=== PATIENT | male | born 1995 | race Hispanic/Latino ===

== ENCOUNTER 2019-10-11 14:02 | Inpatient (IN) | payer SELFPAY ==
[2019-10-11 14:26] LABS: Basophils % (Auto) 0.4 % (0.0-1.8); Eosinophils # (Auto) 0.1 K/mm3 (0.0-0.4); Eosinophils % (Auto) 0.5 % (0.0-4.3); Hematocrit 52.4 % (35.5-45.6); Hemoglobin 18.2 gm/dl (11.8-15.2); Lymphocytes % (Auto) 16.6 % (13.4-35.0); Mean Corpuscular HGB Conc 35 % (32-34); Mean Corpuscular Volume 93 fl (84-94); Monocytes # (Auto) 1.4 K/mm3 (0.0-0.8); Monocytes % (Auto) 11.5 % (0.0-7.3); Platelet Count 304 K/mm3 (140-440); Red Blood Count 5.67 M/mm3 (3.65-5.03); Red Cell Distribution Width 13.5 % (13.2-15.2)
[2019-10-11 14:45] LABS: Alanine Aminotransferase 26 units/L (7-56); Albumin 4.3 g/dL (3.9-5); BUN/Creatinine Ratio 14; Blood Urea Nitrogen 14 mg/dL (9-20); Calcium 9.2 mg/dL (8.4-10.2); Hemolysis Index 20
[2019-10-11] MEDS ORDERED: SODIUM CHLORIDE 0.9% 1000 ML 1,000 ML IV ONE ×2 (14:55→16:50)
[2019-10-11] MEDS ORDERED: MORPHINE 4 MG/1 ML INJ IV ONE (14:55)
[2019-10-11] MEDS ORDERED: ONDANSETRON 4 MG/2 ML INJ IV ONE (14:55)
--- NOTE | 2019-10-11 15:00 | Emergency Department Report ---
ED Abdominal Pain HPI - General Chief Complaint: Abdominal Pain Stated Complaint: CONSTIPATION/ABD PAIN Time Seen by Provider: 10/11/19 14:48 Source: patient Mode of arrival: Ambulatory Limitations: No Limitations - History of Present Illness Initial Comments: Patient is a 24-year-old male presents emergency room with complaints of constipation that began 3 days ago. He states that he is also having lower abdominal pain. He states that he has been having nausea and vomiting. He states he has had approximately 20 episodes of vomiting over the last 3 days. He states that he has not been able to pass gas. He states that he attempted to use Ex-Lax, enema, magnesium citrate. He states that the only thing he is able to keep down his water. He denies any recent travel or sick contacts. His only abdominal surgery history is a surgery for undescended testicle and hernia repair approximately 15 years ago. He denies any other past medical history or allergies to medications. - Related Data Home Medications Medication Instructions Recorded Confirmed Last Taken No Known Home Medications [No 10/11/19 10/11/19 Unknown Reported Home Medications] Allergies Allergy/AdvReac Type Severity Reaction Status Date / Time No Known Allergies Allergy Unverified 10/11/19 14:07 ED Review of Systems ROS: Stated complaint: CONSTIPATION/ABD PAIN Other details as noted in HPI Comment: All other systems reviewed and negative ED Past Medical Hx - Past Medical History Previous Medical History?: No - Surgical History Past Surgical History?: No - Social History Smoking Status: Current Every Day Smoker Substance Use Type: Alcohol, Marijuana - Medications Home Medications: Home Medications Medication Instructions Recorded Confirmed Last Taken Type No Known Home Medications [No 10/11/19 10/11/19 Unknown History Reported Home Medications] ED Physical Exam - General Limitations: No Limitations General appearance: alert, in no apparent distress - Head Head exam: Present: atraumatic, normocephalic - Eye Eye exam: Present: normal appearance - ENT ENT exam: Present: mucous membranes moist - Respiratory Respiratory exam: Present: normal lung sounds bilaterally. Absent: respiratory distress, wheezes, rales, rhonchi, stridor, chest wall tenderness, accessory muscle use, decreased breath sounds, prolonged expiratory - Cardiovascular Cardiovascular Exam: Present: regular rate, normal rhythm, normal heart sounds. Absent: systolic murmur, diastolic murmur, rubs, gallop - GI/Abdominal GI/Abdominal exam: Present: soft, tenderness (generalized lower), hypoactive bowel sounds. Absent: distended, guarding, rebound, rigid - Neurological Exam Neurological exam: Present: alert, oriented X3 - Psychiatric Psychiatric exam: Present: normal affect, normal mood - Skin Skin exam: Present: warm, dry, intact ED Course Vital Signs 10/11/19 10/11/19 10/11/19 14:06 16:01 16:31 Temperature 98.2 F Pulse Rate 104 H Respiratory 16 18 18 Rate Blood Pressure 131/79 Blood Pressure [Right] O2 Sat by Pulse 95 Oximetry 10/11/19 10/11/19 10/11/19 18:52 19:31 20:01 Temperature 97.8 F Pulse Rate 89 Respiratory 18 18 18 Rate Blood Pressure Blood Pressure 130/68 [Right] O2 Sat by Pulse 93 Oximetry 10/11/19 20:47 Temperature 97.9 F Pulse Rate 77 Respiratory 17 Rate Blood Pressure 123/56 Blood Pressure [Right] O2 Sat by Pulse 97 Oximetry - Consultations Consultation #1: 10/11/19 16:[address] Momin, general surgeon who pulled up the CT images and most likely thinks that this is a large ball of stool and less likely a mass causing a large bowel obstruction, he recommended to give the patient a soapsuds enema and milk of magnesia, he states to admit to hospitalist service and he will consult on patient, advised to place patient on clear liquid diet and placed on Dulcolax 10/11/19 17:[address] Good hospitalist for admission he states he will call back 10/11/19 18:[address] Good hospitalist he will accept and resume care of patient, will admit to hospital service ED Medical Decision Making - Lab Data Result diagrams: 10/11/19 14:11 10/11/19 14:11 Lab Results 10/11/19 10/11/19 10/11/19 Range/Units 14:11 14:11 14:19 WBC 11.9 H (4.5-11.0) K/mm3 RBC 5.67 H (3.65-5.03) M/mm3 Hgb 18.2 H (11.8-15.2) gm/dl Hct 52.4 H (35.5-45.6) % MCV 93 (84-94) fl MCH 32 (28-32) pg MCHC 35 H (32-34) % RDW 13.5 (13.2-15.2) % Plt Count 304 (140-440) K/mm3 Lymph % (Auto) 16.6 (13.4-35.0) % [place] % (Auto) 11.5 H (0.0-7.3) % Eos % (Auto) 0.5 (0.0-4.3) % Baso % (Auto) 0.4 (0.0-1.8) % Lymph # 2.0 (1.2-5.4) K/mm3 [place] # 1.4 H (0.0-0.8) K/mm3 Eos # 0.1 (0.0-0.4) K/mm3 Baso # 0.0 (0.0-0.1) K/mm3 Seg Neutrophils % 71.0 H (40.0-70.0) % Seg Neutrophils # 8.5 H (1.8-7.7) K/mm3 Sodium 134 L (137-145) mmol/L Potassium 4.3 (3.6-5.0) mmol/L Chloride 98.5 (98-107) mmol/L Carbon Dioxide 24 (22-30) mmol/L Anion Gap 16 mmol/L BUN 14 (9-20) mg/dL Creatinine 1.0 (0.8-1.5) mg/dL Estimated GFR > 60 ml/min BUN/Creatinine Ratio 14 % Glucose 107 H (75-100) mg/dL Calcium 9.2 (8.4-10.2) mg/dL Total Bilirubin 1.60 H (0.1-1.2) mg/dL AST 31 (5-40) units/L ALT 26 (7-56) units/L Alkaline Phosphatase 61 (35-129) units/L Total Protein 6.7 (6.3-8.2) g/dL Albumin 4.3 (3.9-5) g/dL Albumin/Globulin Ratio 1.8 % Lipase 8 L (13-60) units/L Urine Color Karolyn (Yellow) Urine Turbidity Clear (Clear) Urine pH 5.0 (5.0-7.0) Ur Specific [place] 1.041 H (1.003-1.030) Urine Protein <15 mg/dl (Negative) mg/dL Urine Glucose (UA) Neg (Negative) mg/dL Urine Ketones Neg (Negative) mg/dL Urine Blood Neg (Negative) Urine Nitrite Neg (Negative) Urine Bilirubin Neg (Negative) Urine Urobilinogen 4.0 (<2.0) mg/dL Ur Leukocyte Esterase Neg (Negative) Urine WBC (Auto) 1.0 (0.0-6.0) /HPF Urine RBC (Auto) 1.0 (0.0-6.0) /HPF Urine Bacteria (Auto) 1+ (Negative) /HPF Urine Mucus Few /HPF - Radiology Data Radiology results: report reviewed CT abdomen pelvis w con INDICATION / CLINICAL INFORMATION: MAIN: lower abd pain, constipation x3 days [id number] 100ml. TECHNIQUE: All CT scans at this location are performed using CT dose reduction for ALARA by means of automated exposure control. COMPARISON: None available. FINDINGS: No free fluid is seen in the abdomen. The liver, spleen, kidneys, pancreas, adrenal glands and great vessels are normal. No enlarged mesenteric or retroperitoneal lymph nodes are seen. In the pelvis, no free fluid is seen. There is thickening of the wall of the descending colon and proximal two thirds of the sigmoid colon with fecal material present. The distal third of the si gmoid colon is collapsed. No enlarged lymph nodes are identified. The bladder and the appendix are normal. No significant skeletal abnormality is seen. IMPRESSION: Mild thickening of the wall of the descending and proximal two thirds of the sigmoid colon with a moderate amount of fecal material present. The distal third of the sigmoid colon is collapsed and this is worrisome for a partially obstructing lesion Signer Name: Douglas Henry MD FACR Signed: 10/11/2019 4:23 PM Workstation Name: [id number] Transcribed By: MS Dictated By: Douglas Henry MD Electronically Authenticated By: Douglas Henry MD Signed Date/Time: 10/11/19 1623 DD/ 1619 TD/TT: - Medical Decision Making Patient is a 24-year-old male presents emergency room with complaints of constipation that began 3 days ago. He states that he is also having lower abdo glenn pain. He states that he has been having nausea and vomiting. He states he has had approximately 20 episodes of vomiting over the last 3 days. He states that he has not been able to pass gas. He states that he attempted to use Ex-Lax, enema, magnesium citrate. He states that the only thing he is able to keep down his water. He denies any recent travel or sick contacts. His only abdominal surgery history is a surgery for undescended testicle and hernia repair approximately 15 years ago. He denies any other past medical history or allergies to medications. Initial vitals with mild tachycardia which improved upon repeat. On exam patient has lower abdominal tenderness to palpation and hypoactive bowel sounds, no guarding, no rebound, no rigidity, no peritoneal signs. Labs show signs of mild dehydration and mildly elevated white blood cell count. UA without evidence of UTI. Patient given 1 L normal saline, Zofran, morphine and symptoms slightly improved. CT abd pelvis: Mild thickening of the wall of the descending and proximal two thirds of the sigmoid colon with a moderate amount of fecal material present. The distal third of the sigmoid colon is collapsed and this is worrisome for a partially obstructing lesion. Discussed case with Dr. Momin, general surgeon who pulled up the CT images and most likely thinks that this is a large ball of stool and less likely a mass causing a large bowel obstruction, he recommended to give the patient a soapsuds enema and milk of magnesia, he states to admit to hospitalist service and he will consult on patient, advised to place patient on clear liquid diet and placed on Dulcolax. Spoke to Dr. Good, hospitalist he will accept and resume care of patient, will admit to hospital service - Differential Diagnosis SBO, LBO, mass, colitis, diverticulitis, constipation, impaction Critical care attestation.: If time is entered above; I have spent that time in minutes in the direct care of this critically ill patient, excluding procedure time. ED Disposition Clinical Impression: Large bowel obstruction, Bowel wall thickening Abdominal pain Qualifiers: Abdominal location: lower abdomen, unspecified Qualified Code(s): R10.30 - Lower abdominal pain, unspecified Nausea & vomiting Qualifiers: Vomiting type: unspecified Vomiting Intractability: non-intractable Qualified Code(s): R11.2 - Nausea with vomiting, unspecified Disposition: - TO HOME OR SELFCARE Is pt being admited?: Yes Does the pt Need Aspirin: No Condition: Fair Time of Disposition: 17:00
[2019-10-11 15:33] LABS: Bacteria,Urine 1+ /HPF (Negative); Bilirubin,Urine NEG (Negative); Blood,Urine NEG (Negative); Color,Urine Amber (Yellow); Mucus,Urine FEW /HPF; Protein,Urine <15 mg/dL mg/dL (Negative)
--- NOTE | 2019-10-11 16:27 | Cat Scan Report ---
CT abdomen pelvis w con INDICATION / CLINICAL INFORMATION: MAIN: lower abd pain, constipation x3 days [id number] 100ml. TECHNIQUE: All CT scans at this location are performed using CT dose reduction for ALARA by means of automated e xposure control. COMPARISON: None available. FINDINGS: No free fluid is seen in the abdomen. The liver, spleen, kidneys, pancreas, adrenal glands and great vessels are normal. No enlarged mesenteric or retroperitoneal lymph nodes are seen. In the pelvis, no free fluid is seen. There is thickening of the wall of the descending colon and pro ximal two thirds of the sigmoid colon with fecal material present. The distal third of the sigmoid [place] is collapsed. No enlarged lymph nodes are identified. The bladder and the appendix are normal. No significant skeletal abnormality is seen. IMPRESSION: Mild thickening of the wall of the descending and proximal two thirds of the sigmoid colon with a mod erate amount of fecal material present. The distal third of the sigmoid colon is collapsed and this i s worrisome for a partially obstructing lesion Signer Name: Douglas Henry MD FACR Signed: 10/11/2019 4:23 PM Workstation Name: [id number]
[2019-10-11] MEDS ORDERED: MAGNESIUM HYDROXIDE (MOM) ORAL LIQD UDC PO ONE (16:53)
--- NOTE | 2019-10-11 16:59 | Event Note ---
Date: 10/11/19 Discussed case with TERRIE Vanegas. CT reviewed. This is mostly likely severe constipation. Would try soap suds enemas along with daily laxative. Will need to be hydrated. Eventually, will need to be on good bowel regimen at home.
[2019-10-11] MEDS ORDERED: HYDROmorphone 1 MG/1 ML INJ IV ONE (18:33)
--- NOTE | 2019-10-11 21:00 | History and Physical Report ---
History of Present Illness Date of examination: 10/11/19 Date of admission: 10/11/19 18:35 Chief complaint: Complains of abdominal pain and constipation for 5 days History of present illness: 24-year-old male with no significant past medical history comes in for constipation of 5 days duration. As per the ER physician business development assistant it was mentioned last 3 days. Patient is also having left upper quadrant and left lower quadrant pain which is about 7-10 on a scale of 1-10. Colicky. Patient also says that he had 20 episodes of vomiting over the last 3 days. Patient states that he is not able to pass gas. Patient attempted and Félix accepted but with no relief. No recent travel no fever. Had abdominal surgery for undescended testicles and hernia repair approximately 15 years ago. Denies any other past medical history. No exposure to coronavirus. No recent travel. Past Medical History Previous Medical History?: No Surgical History Past Surgical History?: No Social History Smoking Status: Current Every Day Smoker Substance Use Type: Alcohol, Marijuana Family history Medications Home Medications: Home Medications Medication Instructions Recorded Confirmed Last Taken Type No Known Home Medications [No 10/11/19 10/11/19 Unknown History Reported Home Medications] Review of Systems ROS: Stated complaint: CONSTIPATION/ABD PAIN Vomiting persistently. Comment: All other systems reviewed and negative Medications and Allergies Allergies Allergy/AdvReac Type Severity Reaction Status Date / Time No Known Allergies Allergy Unverified 10/11/19 14:07 Home Medications Medication Instructions Recorded Confirmed Last Taken Type No Known Home Medications [No 10/11/19 10/11/19 Unknown History Reported Home Medications] Active Meds: Active Medications Bisacodyl (Dulcolax) 10 mg PO QDAY PRN PRN Reason: Constipation Exam - Constitutional Vitals: Temp Pulse Resp BP Pulse Ox 97.9 F 77 17 123/56 97 10/11/19 20:47 10/11/19 20:47 10/11/19 20:47 10/11/19 20:47 10/11/19 20:47 General appearance: Present: no acute distress, well-nourished - EENT Eyes: Present: PERRL ENT: hearing intact, clear oral mucosa - Neck Neck: Present: supple, normal ROM - Respiratory Respiratory effort: normal Respiratory: bilateral: CTA - Cardiovascular Heart rate: 70 Rhythm: regular Heart Sounds: Present: S1 & S2. Absent: rub, click - Extremities Extremities: no ischemia, pulses intact, pulses symmetrical, No edema Peripheral Pulses: within normal limits - Abdominal General gastrointestinal: Present: soft, tender (Left lower quadrant), non-distended, normal bowel sounds Male genitourinary: Present: normal - Rectal Rectal Exam: tenderness - Integumentary Integumentary: Present: clear, warm, dry - Musculoskeletal Musculoskeletal: gait normal, strength equal bilaterally - Psychiatric Psychiatric: appropriate mood/affect, intact judgment & insight - Neurologic Neurologic: CNII-XII intact, moves all extremities - Allied Health Allied health notes reviewed: nursing, case management Results - Labs CBC & Chem 7: 10/11/19 14:11 10/11/19 14:11 Labs: Laboratory Last Values WBC 11.9 K/mm3 (4.5-11.0) H 10/11/19 14:11 RBC 5.67 M/mm3 (3.65-5.03) H 10/11/19 14:11 Hgb 18.2 gm/dl (11.8-15.2) H 10/11/19 14:11 Hct 52.4 % (35.5-45.6) H 10/11/19 14:11 MCV 93 fl (84-94) 10/11/19 14:11 MCH 32 pg (28-32) 10/11/19 14:11 MCHC 35 % (32-34) H 10/11/19 14:11 RDW 13.5 % (13.2-15.2) 10/11/19 14:11 Plt Count 304 K/mm3 (140-440) 10/11/19 14:11 Lymph % (Auto) 16.6 % (13.4-35.0) 10/11/19 14:11 [place] % (Auto) 11.5 % (0.0-7.3) H 10/11/19 14:11 Eos % (Auto) 0.5 % (0.0-4.3) 10/11/19 14:11 Baso % (Auto) 0.4 % (0.0-1.8) 10/11/19 14:11 Lymph # 2.0 K/mm3 (1.2-5.4) 10/11/19 14:11 [place] # 1.4 K/mm3 (0.0-0.8) H 10/11/19 14:11 Eos # 0.1 K/mm3 (0.0-0.4) 10/11/19 14:11 Baso # 0.0 K/mm3 (0.0-0.1) 10/11/19 14:11 Seg Neutrophils % 71.0 % (40.0-70.0) H 10/11/19 14:11 Seg Neutrophils # 8.5 K/mm3 (1.8-7.7) H 10/11/19 14:11 Sodium 134 mmol/L (137-145) L 10/11/19 14:11 Potassium 4.3 mmol/L (3.6-5.0) 10/11/19 14:11 Chloride 98.5 mmol/L (98-107) 10/11/19 14:11 Carbon Dioxide 24 mmol/L (22-30) 10/11/19 14:11 Anion Gap 16 mmol/L 10/11/19 14:11 BUN 14 mg/dL (9-20) 10/11/19 14:11 Creatinine 1.0 mg/dL (0.8-1.5) 10/11/19 14:11 Estimated GFR > 60 ml/min 10/11/19 14:11 BUN/Creatinine Ratio 14 % 10/11/19 14:11 Glucose 107 mg/dL (75-100) H 10/11/19 14:11 Calcium 9.2 mg/dL (8.4-10.2) 10/11/19 14:11 Total Bilirubin 1.60 mg/dL (0.1-1.2) H 10/11/19 14:11 AST 31 units/L (5-40) 10/11/19 14:11 ALT 26 units/L (7-56) 10/11/19 14:11 Alkaline Phosphatase 61 units/L (35-129) 10/11/19 14:11 Total Protein 6.7 g/dL (6.3-8.2) 10/11/19 14:11 Albumin 4.3 g/dL (3.9-5) 10/11/19 14:11 Albumin/Globulin Ratio 1.8 % 10/11/19 14:11 Lipase 8 units/L (13-60) L 10/11/19 14:11 Urine Color Karolyn (Yellow) 10/11/19 14:19 Urine Turbidity Clear (Clear) 10/11/19 14:19 Urine pH 5.0 (5.0-7.0) 10/11/19 14:19 Ur Specific [place] 1.041 (1.003-1.030) H 10/11/19 14:19 Urine Protein <15 mg/dl mg/dL (Negative) 10/11/19 14:19 Urine Glucose (UA) Neg mg/dL (Negative) 10/11/19 14:19 Urine Ketones Neg mg/dL (Negative) 10/11/19 14:19 Urine Blood Neg (Negative) 10/11/19 14:19 Urine Nitrite Neg (Negative) 10/11/19 14:19 Urine Bilirubin Neg (Negative) 10/11/19 14:19 Urine Urobilinogen 4.0 mg/dL (<2.0) 10/11/19 14:19 Ur Leukocyte Esterase Neg (Negative) 10/11/19 14:19 Urine WBC (Auto) 1.0 /HPF (0.0-6.0) 10/11/19 14:19 Urine RBC (Auto) 1.0 /HPF (0.0-6.0) 10/11/19 14:19 Urine Bacteria (Auto) 1+ /HPF (Negative) 10/11/19 14:19 Urine Mucus Few /HPF 10/11/19 14:19 Short CBC 10/11/19 Range/Units 14:11 WBC 11.9 H (4.5-11.0) K/mm3 Hgb 18.2 H (11.8-15.2) gm/dl Hct 52.4 H (35.5-45.6) % Plt Count 304 (140-440) K/mm3 BMP 10/11/19 14:11 Sodium 134 L Potassium 4.3 Chloride 98.5 Carbon Dioxide 24 BUN 14 Creatinine 1.0 Glucose 107 H Calcium 9.2 Liver Function 10/11/19 Range/Units 14:11 Total Bilirubin 1.60 H (0.1-1.2) mg/dL AST 31 (5-40) units/L ALT 26 (7-56) units/L Alkaline Phosphatase 61 (35-129) units/L Albumin 4.3 (3.9-5) g/dL Urine 10/11/19 Range/Units 14:19 Urine Color [place]yn (Yellow) Urine pH 5.0 (5.0-7.0) Ur Specific [place] 1.041 H (1.003-1.030) Urine Protein <15 mg/dl (Negative) mg/dL Urine Glucose (UA) Neg (Negative) mg/dL - Imaging and Cardiology Imaging and Cardiology: CT abdomen IMPRESSION: Mild thickening of the wall of the descending and proximal two thirds of the sigmoid colon with a moderate amount of fecal material present. The distal third of the sigmoid colon is collapsed and this is worrisome for a partially obstructing lesion [place]/IV: IV Catheter Type [Right INT / Saline Lock Antecubital] Assessment and Plan Advance Directives: Yes (Full code) VTE prophylaxis?: Chemical Plan of care discussed with patient/family: Yes - Patient Problems (1) Large bowel obstruction Current Visit: Yes Status: Acute Plan to address problem: Probably secondary to fecal impaction Large intestine mass unlikely at this age Surgical consult and GI consult requested We will start the patient on lactulose (2) Acute dehydration Current Visit: Yes Status: Acute Plan to address problem: IV fluids for now Hemoconcentration High hematocrit secondary to dehydration--no polycythemia Urine specific gravity is 1.041 which is very high (3) Polycythemia due to fall in plasma volume Current Visit: Yes Status: Acute Plan to address problem: Secondary to fall in plasma volume Patient has high specific gravity of the urine-1.041 IV fluids for now (4) Hyponatremia Current Visit: Yes Status: Acute Plan to address problem: Mild IV fluids for now (5) DVT prophylaxis Current Visit: Yes Status: Acute Plan to address problem: Heparin 5000 every 12
[2019-10-11] MEDS ORDERED: METOCLOPRAMIDE 10 MG/2 ML INJ IV PRN (21:37)
[2019-10-11] MEDS ORDERED: ACETAMINOPHEN 325 MG TAB PO PRN ×2 (21:37)
[2019-10-11] MEDS ORDERED: ONDANSETRON 4 MG/2 ML INJ IV PRN (21:37)
[2019-10-11] MEDS: D5W/0.9% NACL 1,000 ML IV SCH (22:12)
[2019-10-11] MEDS: FAMOTIDINE 20 MG/2 ML INJ IV SCH (22:13)
[2019-10-11] MEDS: KETOROLAC 30 MG/1 ML INJ IV PRN (22:14)
[2019-10-12] MEDS: D5W/0.9% NACL 1,000 ML IV SCH ×2 (05:04→13:10)
[2019-10-12] MEDS: KETOROLAC 30 MG/1 ML INJ IV PRN ×3 (05:06→19:31)
[2019-10-12] MEDS: FAMOTIDINE 20 MG/2 ML INJ IV SCH (09:43)
--- NOTE | 2019-10-12 12:11 | Consultation ---
History of Present Illness Consult date: 10/12/19 Reason for consult: abdominal pain Requesting physician: SEN UNDERWOOD Chief complaint: lower abdominal pain - History of present illness History of present illness: 24yo M, otherwise healthy, presents for evaluation of lower abdominal pain and N/V. Pt reports that two days ago, he began to have lower abdominal pain. He had not had a BM, so he decided to try an enema, mag Citrate, etc., which led to N/V. Pt presented to ED for evaluation. CT showed a large amount of stool in the distal colon. Pt reports that he usually has 1-2 BMs per day. He usually does not have problem s with constipation. No family history of intestinal problems or cancer. Past History Past Medical History: No medical history Past Surgical History: Other (right hernia and retracted testicle - surgery at 9yo) Social history: smoking (occasional), alcohol abuse (occasional). denies: prescription drug abuse, IV drug use Family history: no significant family history Medications and Allergies Allergies Allergy/AdvReac Type Severity Reaction Status Date / Time No Known Allergies Allergy Verified 10/11/19 21:51 Home Medications Medication Instructions Recorded Confirmed Last Taken Type No Known Home Medications [No 10/11/19 10/11/19 Unknown History Reported Home Medications] Active Meds: Active Medications Acetaminophen (Tylenol) 650 mg PO Q4H PRN PRN Reason: Pain MILD(1-3)/Fever >100.5/ARMENDARIZ Bisacodyl (Dulcolax) 10 mg PO QDAY PRN PRN Reason: Constipation Famotidine (Pepcid) 20 mg IV BID [facility] Last Admin: 10/12/19 09:43 Dose: 20 mg Documented by: Dextrose/Sodium Chloride (D5ns) 1,000 mls @ 125 mls/hr IV DIRECT DICK Last Admin: 10/12/19 05:04 Dose: 125 mls/hr Documented by: Ketorolac Tromethamine (Toradol) 15 mg IV Q6H PRN PRN Reason: Pain, Mild (1-3) Stop: 10/16/19 21:40 Last Admin: 10/12/19 11:35 Dose: 15 mg Documented by: Metoclopramide HCl (Reglan) 10 mg IV Q6H PRN PRN Reason: Nausea And Vomiting Ondansetron HCl (Zofran) 4 mg IV Q3H PRN PRN Reason: Nausea And Vomiting Polyethylene Glycol (Miralax 3350) 17 gm PO QDAY [facility] Sodium Chloride (Sodium Chloride Flush Syringe 10 Ml) 10 ml IV BID [facility] Last Admin: 10/12/19 09:46 Dose: 10 ml Documented by: Sodium Chloride (Sodium Chloride Flush Syringe 10 Ml) 10 ml IV PRN PRN PRN Reason: LINE FLUSH Review of Systems - Constitutional no fever, no chills, no chronic pain - Cardiovascular no chest pain, no shortness of breath - Respiratory no cough - Gastrointestinal abdominal pain, nausea, vomiting, constipation, change in bowel habits, dyspepsia/bloating - Genitourinary no dysuria, no flank pain - Muskuloskeletal no low back pain - Integumentary no rash Exam Vital Signs Temp Pulse Resp BP Pulse Ox 98.2 F 104 H 16 131/79 95 10/11/19 14:06 10/11/19 14:06 10/11/19 14:06 10/11/19 14:06 10/11/19 14:06 - General physical appearance Positive: well developed, well nourished, no distress, no pain, other - Eyes Positive: normal occular movement. Negative: icteric - Respiratory Positive: normal expansion, normal respiratory effort, clear to auscultation - Cardiovascular Rhythm: regular - Abdomen Abdomen: Present: soft, tender (very minimal in LLQ). Absent: distended, guarding, rigid, surgical scars - Integumentary no rash, no growths, no abnormal pigmentation - Neurologic Neurologic: alert and oriented to time, place and person, motor strength and sensation are grossly intact - Psychiatric Psychiatric: appropriate mood/affect, intact judgment & insight, cooperative Results - Labs 10/11/19 14:11 10/11/19 14:11 Abnormal lab results 10/11/19 10/11/19 10/11/19 Range/Units 14:11 14:11 14:19 WBC 11.9 H (4.5-11.0) K/mm3 RBC 5.67 H (3.65-5.03) M/mm3 Hgb 18.2 H (11.8-15.2) gm/dl Hct 52.4 H (35.5-45.6) % MCHC 35 H (32-34) % [place] % (Auto) 11.5 H (0.0-7.3) % [place] # 1.4 H (0.0-0.8) K/mm3 Seg Neutrophils % 71.0 H (40.0-70.0) % Seg Neutrophils # 8.5 H (1.8-7.7) K/mm3 Sodium 134 L (137-145) mmol/L Glucose 107 H (75-100) mg/dL Total Bilirubin 1.60 H (0.1-1.2) mg/dL Lipase 8 L (13-60) units/L Ur Specific [place] 1.041 H (1.003-1.030) Diabetes panel 10/11/19 Range/Units 14:11 Sodium 134 L (137-145) mmol/L Potassium 4.3 (3.6-5.0) mmol/L Chloride 98.5 (98-107) mmol/L Carbon Dioxide 24 (22-30) mmol/L BUN 14 (9-20) mg/dL Creatinine 1.0 (0.8-1.5) mg/dL Glucose 107 H (75-100) mg/dL Calcium 9.2 (8.4-10.2) mg/dL AST 31 (5-40) units/L ALT 26 (7-56) units/L Alkaline Phosphatase 61 (35-129) units/L Total Protein 6.7 (6.3-8.2) g/dL Albumin 4.3 (3.9-5) g/dL Calcium panel 10/11/19 Range/Units 14:11 Calcium 9.2 (8.4-10.2) mg/dL Albumin 4.3 (3.9-5) g/dL Pituitary panel 10/11/19 Range/Units 14:11 Sodium 134 L (137-145) mmol/L Potassium 4.3 (3.6-5.0) mmol/L Chloride 98.5 (98-107) mmol/L Carbon Dioxide 24 (22-30) mmol/L BUN 14 (9-20) mg/dL Creatinine 1.0 (0.8-1.5) mg/dL Glucose 107 H (75-100) mg/dL Calcium 9.2 (8.4-10.2) mg/dL Adrenal panel 10/11/19 Range/Units 14:11 Sodium 134 L (137-145) mmol/L Potassium 4.3 (3.6-5.0) mmol/L Chloride 98.5 (98-107) mmol/L Carbon Dioxide 24 (22-30) mmol/L BUN 14 (9-20) mg/dL Creatinine 1.0 (0.8-1.5) mg/dL Glucose 107 H (75-100) mg/dL Calcium 9.2 (8.4-10.2) mg/dL Total Bilirubin 1.60 H (0.1-1.2) mg/dL AST 31 (5-40) units/L ALT 26 (7-56) units/L Alkaline Phosphatase 61 (35-129) units/L Total Protein 6.7 (6.3-8.2) g/dL Albumin 4.3 (3.9-5) g/dL - Imaging CT scan - abdomen: report reviewed, image reviewed CT scan - pelvis: report reviewed, image reviewed Assessment and Plan - Patient Problems (1) Abnormal CT scan, colon Current Visit: Yes Status: Acute Plan to address problem: Pt stable. I think this is more a case of severe constipation as opposed to an obstruction. Would treat with conservative measures. No urgent need for surgery. Recommendation: 1) Soap suds enema again 2) miralax 3) X-ray in AM. 4) Anticipate d/c home tomorrow if he has a good bowel movement today and X-ray looks better. Please call with questions. Time=30min
--- NOTE | 2019-10-12 12:33 | Gastroenterology Consultation ---
History of Present Illness - Reason for Consult Consult date: 10/12/[address] Colon Requesting physician: EVONNE WYMAN - History of Present Illness The patient is a 24 yo male with no past GI history/complaints. He was admitted with a 3-4 day hx of acute constipation. This was resistant to PO Mg citrate, but he had some BM with enemas. He had associated LLQ pain and bloating, and emesis at home (not here). There was no blood in the stool. He has had no prior colonoscopy nor bowel surgery. He has no family hx of IBD or colon cancer. The colon on the CT showed mild wall thickening but no free air, and no small bowel dilation. After enemas and PO MOM here, he has had 3 large BMs, and feels much better. He denies new medications or narcotics at home. Past History Past Medical History: No medical history Past Surgical History: No surgical history Social history: no significant social history. denies: smoking, alcohol abuse Family history: no significant family history Medications and Allergies Allergies Allergy/AdvReac Type Severity Reaction Status Date / Time No Known Allergies Allergy Verified 10/11/19 21:51 Home Medications Medication Instructions Recorded Confirmed Last Taken Type No Known Home Medications [No 10/11/19 10/11/19 Unknown History Reported Home Medications] Active Meds: Active Medications Acetaminophen (Tylenol) 650 mg PO Q4H PRN PRN Reason: Pain MILD(1-3)/Fever >100.5/ARMENDARIZ Dextrose/Sodium Chloride (D5ns) 1,000 mls @ 125 mls/hr IV DIRECT DICK Last Admin: 10/12/19 05:04 Dose: 125 mls/hr Documented by: Ketorolac Tromethamine (Toradol) 15 mg IV Q6H PRN PRN Reason: Pain, Mild (1-3) Stop: 10/16/19 21:40 Last Admin: 10/12/19 11:35 Dose: 15 mg Documented by: Magnesium Hydroxide (Milk Of Magnesia) 30 ml PO BID [facility] Stop: 10/15/19 10:01 Metoclopramide HCl (Reglan) 10 mg IV Q6H PRN PRN Reason: Nausea And Vomiting Ondansetron HCl (Zofran) 4 mg IV Q3H PRN PRN Reason: Nausea And Vomiting Polyethylene Glycol (Miralax 3350) 17 gm PO QDAY [facility] Sodium Chloride (Sodium Chloride Flush Syringe 10 Ml) 10 ml IV BID [facility] Last Admin: 10/12/19 09:46 Dose: 10 ml Documented by: Sodium Chloride (Sodium Chloride Flush Syringe 10 Ml) 10 ml IV PRN PRN PRN Reason: LINE FLUSH I HAVE REVIEWED/RECONCILED MEDICATIONS Review of Systems - Review of Systems All systems: negative (as noted in the HPI.) Exam - Constitutional Vital Signs: Temp Pulse Resp BP Pulse Ox 98.3 F 58 L 18 101/48 96 10/12/19 11:51 10/12/19 11:51 10/12/19 11:51 10/12/19 11:51 10/12/19 11:51 General appearance: no acute distress - EENT Eyes: PERRL, EOM intact ENT: hearing intact, clear oral mucosa - Neck Neck: supple, normal ROM - Respiratory Respiratory effort: normal Respiratory: bilateral: CTA - Cardiovascular Rhythm: regular Heart Sounds: Present: S1 & S2 Extremities: no ischemia, No edema - Gastrointestinal General gastrointestinal: Present: soft, tender (Minimal LLQ tenderness without guard or peritoneal signs; there was no distention), non-distended - Labs CBC & Chem 7: 10/11/19 14:11 10/11/19 14:11 Lab Results: Laboratory Results - last 24 hr 10/11/19 10/11/19 10/11/19 14:11 14:11 14:19 WBC 11.9 H RBC 5.67 H Hgb 18.2 H Hct 52.4 H MCV 93 MCH 32 MCHC 35 H RDW 13.5 Plt Count 304 Lymph % (Auto) 16.6 [place] % (Auto) 11.5 H Eos % (Auto) 0.5 Baso % (Auto) 0.4 Lymph # 2.0 [place] # 1.4 H Eos # 0.1 Baso # 0.0 Seg Neutrophils % 71.0 H Seg Neutrophils # 8.5 H Sodium 134 L Potassium 4.3 Chloride 98.5 Carbon Dioxide 24 Anion Gap 16 BUN 14 Creatinine 1.0 Estimated GFR > 60 BUN/Creatinine Ratio 14 Glucose 107 H Calcium 9.2 Total Bilirubin 1.60 H AST 31 ALT 26 Alkaline Phosphatase 61 Total Protein 6.7 Albumin 4.3 Albumin/Globulin Ratio 1.8 Lipase 8 L Urine Color Karolyn Urine Turbidity Clear Urine pH 5.0 Ur Specific [place] 1.041 H Urine Protein <15 mg/dl Urine Glucose (UA) Neg Urine Ketones Neg Urine Blood Neg Urine Nitrite Neg Urine Bilirubin Neg Urine Urobilinogen 4.0 Ur Leukocyte Esterase Neg Urine WBC (Auto) 1.0 Urine RBC (Auto) 1.0 Urine Bacteria (Auto) 1+ Urine Mucus Few Assessment and Plan - Patient Problems (1) Abnormal CT scan, colon Current Visit: Yes Status: Acute Plan to address problem: - Likely acute constipation, but also possible would be acute enteritis. Doubt IBD or cancer given acuity of onset. - Since no N/V with clears, and has had multiple BMs with laxatives, will advance diet, and check KUB. - Agree with scheduled laxatives (will add MOM to miralax), and avoid all narcotics. - Colonoscopy in 4-6 weeks if resolves (to r/o Crohns), or sooner if symptoms recur/fail to resolve. - I think, given wall thickening, that short course of abx may be of benefit, and would not hurt; will start cipro/flagyl.
[2019-10-12] MEDS ORDERED: metroNIDAZOLE 500 MG TAB PO SCH (13:00)
[2019-10-12] MEDS: metroNIDAZOLE 500 MG TAB PO SCH (13:10)
[2019-10-12] MEDS: POLYETHYLENE GLYCOL 3350 17 GM POWDER PO SCH (13:10)
[2019-10-12] MEDS: levoFLOXacin 500 MG TAB PO SCH (13:10)
--- NOTE | 2019-10-12 14:28 | Progress Note ---
Assessment and Plan Assessment and plan: - Patient Problems Constipation versus partial bowel obstruction Probably secondary to fecal impaction Large intestine mass unlikely at this age Surgical consult and GI consult requested I discussed with Dr. Momin. He thinks its most likely constipation On Miralax, Dulcolax has not had bowel movement yet. Acute dehydration IV fluids for now Hemoconcentration High hematocrit secondary to dehydration--no polycythemia Urine specific gravity is 1.041 which is very high Polycythemia due to fall in plasma volume Secondary to fall in plasma volume Patient has high specific gravity of the urine-1.041 IV fluids for now Hyponatremia Mild IV fluids for now DVT prophylaxis Heparin 5000 every 12 History Interval history: Constipation Abdominal pain Hospitalist Physical - Physical exam Narrative exam: GEN: Not in acute distress, lying in bed HEENT: Normocephalic, atraumatic, Neck: supple, No JVD Lungs: Clear to auscultation bilaterally, heart;S1 and S2 reg, no murmurs, rubs or gallop Abd:soft, mild tender, no rebound, non distended, normal bowel sounds, Ext: No edema, no clubbing, no cyanosis, Neuro: Awake,alert,oriented X3 , no focal signs, - Constitutional Vitals: Temp Pulse Resp BP Pulse Ox 98.3 F 58 L 18 101/48 96 10/12/19 11:51 10/12/19 11:51 10/12/19 12:05 10/12/19 11:51 10/12/19 11:51 General appearance: Present: no acute distress, well-nourished Results - Labs CBC & Chem 7: 10/11/19 14:11 10/11/19 14:11 Labs: Laboratory Last Values WBC 11.9 K/mm3 (4.5-11.0) H 10/11/19 14:11 RBC 5.67 M/mm3 (3.65-5.03) H 10/11/19 14:11 Hgb 18.2 gm/dl (11.8-15.2) H 10/11/19 14:11 Hct 52.4 % (35.5-45.6) H 10/11/19 14:11 MCV 93 fl (84-94) 10/11/19 14:11 MCH 32 pg (28-32) 10/11/19 14:11 MCHC 35 % (32-34) H 10/11/19 14:11 RDW 13.5 % (13.2-15.2) 10/11/19 14:11 Plt Count 304 K/mm3 (140-440) 10/11/19 14:11 Lymph % (Auto) 16.6 % (13.4-35.0) 10/11/19 14:11 [place] % (Auto) 11.5 % (0.0-7.3) H 10/11/19 14:11 Eos % (Auto) 0.5 % (0.0-4.3) 10/11/19 14:11 Baso % (Auto) 0.4 % (0.0-1.8) 10/11/19 14:11 Lymph # 2.0 K/mm3 (1.2-5.4) 10/11/19 14:11 [place] # 1.4 K/mm3 (0.0-0.8) H 10/11/19 14:11 Eos # 0.1 K/mm3 (0.0-0.4) 10/11/19 14:11 Baso # 0.0 K/mm3 (0.0-0.1) 10/11/19 14:11 Seg Neutrophils % 71.0 % (40.0-70.0) H 10/11/19 14:11 Seg Neutrophils # 8.5 K/mm3 (1.8-7.7) H 10/11/19 14:11 Sodium 134 mmol/L (137-145) L 10/11/19 14:11 Potassium 4.3 mmol/L (3.6-5.0) 10/11/19 14:11 Chloride 98.5 mmol/L (98-107) 10/11/19 14:11 Carbon Dioxide 24 mmol/L (22-30) 10/11/19 14:11 Anion Gap 16 mmol/L 10/11/19 14:11 BUN 14 mg/dL (9-20) 10/11/19 14:11 Creatinine 1.0 mg/dL (0.8-1.5) 10/11/19 14:11 Estimated GFR > 60 ml/min 10/11/19 14:11 BUN/Creatinine Ratio 14 % 10/11/19 14:11 Glucose 107 mg/dL (75-100) H 10/11/19 14:11 Calcium 9.2 mg/dL (8.4-10.2) 10/11/19 14:11 Total Bilirubin 1.60 mg/dL (0.1-1.2) H 10/11/19 14:11 AST 31 units/L (5-40) 10/11/19 14:11 ALT 26 units/L (7-56) 10/11/19 14:11 Alkaline Phosphatase 61 units/L (35-129) 10/11/19 14:11 Total Protein 6.7 g/dL (6.3-8.2) 10/11/19 14:11 Albumin 4.3 g/dL (3.9-5) 10/11/19 14:11 Albumin/Globulin Ratio 1.8 % 10/11/19 14:11 Lipase 8 units/L (13-60) L 10/11/19 14:11 Urine Color Karolyn (Yellow) 10/11/19 14:19 Urine Turbidity Clear (Clear) 10/11/19 14:19 Urine pH 5.0 (5.0-7.0) 10/11/19 14:19 Ur Specific [place] 1.041 (1.003-1.030) H 10/11/19 14:19 Urine Protein <15 mg/dl mg/dL (Negative) 10/11/19 14:19 Urine Glucose (UA) Neg mg/dL (Negative) 10/11/19 14:19 Urine Ketones Neg mg/dL (Negative) 10/11/19 14:19 Urine Blood Neg (Negative) 10/11/19 14:19 Urine Nitrite Neg (Negative) 10/11/19 14:19 Urine Bilirubin Neg (Negative) 10/11/19 14:19 Urine Urobilinogen 4.0 mg/dL (<2.0) 10/11/19 14:19 Ur Leukocyte Esterase Neg (Negative) 10/11/19 14:19 Urine WBC (Auto) 1.0 /HPF (0.0-6.0) 10/11/19 14:19 Urine RBC (Auto) 1.0 /HPF (0.0-6.0) 10/11/19 14:19 Urine Bacteria (Auto) 1+ /HPF (Negative) 10/11/19 14:19 Urine Mucus Few /HPF 10/11/19 14:19 [place]/IV: Voiding Method Toilet IV Catheter Type [Right INT / Saline Lock Antecubital] Active Medications - Current Medications Current Medications: Generic Name Dose Route Start Last Admin Trade Name Freq PRN Reason Stop Dose Admin Acetaminophen 650 mg 10/11/19 21:37 Tylenol PO Q4H PRN Pain MILD(1-3)/Fever >100.5/ARMENDARIZ Dextrose/Sodium Chloride 1,000 mls @ 125 mls/hr 10/11/19 22:00 10/12/19 13:10 D5ns IV 125 mls/hr DIRECT DICK Administration Ketorolac Tromethamine 15 mg 10/11/19 21:41 10/12/19 11:35 Toradol IV 10/16/19 21:40 15 mg Q6H PRN Administration Pain, Mild (1-3) Levofloxacin 500 mg 10/12/19 13:00 10/12/19 13:10 Levaquin PO 10/16/19 10:01 500 mg Q24HR DICK Administration Magnesium Hydroxide 30 ml 10/12/19 22:00 Milk Of Magnesia PO 10/15/19 10:01 BID DICK Metoclopramide HCl 10 mg 10/11/19 21:37 Reglan IV Q6H PRN Nausea And Vomiting Metronidazole 500 mg 10/12/19 13:00 10/12/19 13:10 Flagyl PO 10/16/19 22:01 500 mg Q12HR D[facility] Administration Protocol Ondansetron HCl 4 mg 10/11/19 21:37 Zofran IV Q3H PRN Nausea And Vomiting Polyethylene Glycol 17 gm 10/12/19 13:00 10/12/19 13:10 Miralax 3350 PO 17 gm QDAY [facility] Administration Sodium Chloride 10 ml 10/11/19 22:00 10/12/19 09:46 Sodium Chloride Flush Syringe 10 Ml IV 10 ml BID [facility] Administration Sodium Chloride 10 ml 10/11/19 21:37 Sodium Chloride Flush Syringe 10 Ml IV PRN PRN LINE FLUSH
[2019-10-12] MEDS: HEPARIN 5,000 UNIT/1 ML VIAL SUB-Q SCH (22:04)
[2019-10-12] MEDS: MAGNESIUM HYDROXIDE (MOM) ORAL LIQD UDC PO SCH (22:04)
[2019-10-13] MEDS: metroNIDAZOLE 500 MG TAB PO SCH ×2 (00:47→09:33)
[2019-10-13] MEDS: D5W/0.9% NACL 1,000 ML IV SCH ×2 (00:53→09:55)
[2019-10-13 05:53] LABS: Hematocrit 41.4 % (35.5-45.6); Hemoglobin 14.2 gm/dl (11.8-15.2); Mean Corpuscular HGB Conc 35 % (32-34); Mean Corpuscular Volume 95 fl (84-94); Platelet Count 176 K/mm3 (140-440); Red Blood Count 4.37 M/mm3 (3.65-5.03); Red Cell Distribution Width 13.4 % (13.2-15.2)
[2019-10-13 06:13] LABS: BUN/Creatinine Ratio 7; Blood Urea Nitrogen 6 mg/dL (9-20); Calcium 8.5 mg/dL (8.4-10.2); Hemolysis Index 7
[2019-10-13] MEDS: HEPARIN 5,000 UNIT/1 ML VIAL SUB-Q SCH ×2 (07:00→13:43)
--- NOTE | 2019-10-13 08:16 | XRay Report ---
ABDOMEN 2 VIEW(S) INDICATION / CLINICAL INFORMATION: large bowel obstruction. COMPARISON: CT abdomen/pelvis from 10/11/2019 FINDINGS: TUBES / LINES: None. BOWEL GAS PATTERN: The proximal one half of the colon is gas-filled and not dilated. Bowel gas patter n is otherwise unremarkable. FREE AIR / EXTRALUMINAL GAS: None seen. ADDITIONAL FINDINGS: No significant additional findings. IMPRESSION: 1. Gas-filled proximal colon does not appear dilated on this exam. Otherwise nothing acute. Signer Name: Brendan Ayon MD Signed: 10/13/2019 8:12 AM Workstation Name: [id number]
--- NOTE | 2019-10-13 09:15 | Progress Note ---
Assessment and Plan - Patient Problems (1) Abnormal CT scan, colon Current Visit: Yes Status: Acute Plan to address problem: Pt stable. Patient had multiple bowel movements. He feels better. Tolerated diet. X-ray looks good. Recommendation: 1) Ok to d/c home 2) f/u with GI 3) Increase intake of water and fiber. Please call with questions. Time=10min Subjective Date of service: 10/13/19 Patient Reports: Positive: no new complaints, feels better, tolerating a regular diet, bowel movement. Negative: nausea, vomiting Objective Vital Signs - 12hr 10/12/19 10/13/19 10/13/19 23:51 03:48 07:36 Temperature 98.3 F 98.0 F 98.1 F Pulse Rate 49 L 49 L 49 L Respiratory 16 16 18 Rate Blood Pressure 104/43 100/47 100/39 O2 Sat by Pulse 96 98 98 Oximetry - General physical appearance no distress, no pain, other (looks well) - Respiratory normal expansion, normal respiratory effort - Abdomen soft, not tender, not distended - Labs 10/13/19 05:34 10/13/19 05:34 Diabetes panel 10/13/19 Range/Units 05:34 Sodium 143 D (137-145) mmol/L Potassium 4.3 (3.6-5.0) mmol/L Chloride 106.1 (98-107) mmol/L Carbon Dioxide 26 (22-30) mmol/L BUN 6 L (9-20) mg/dL Creatinine 0.9 (0.8-1.5) mg/dL Glucose 99 (75-100) mg/dL Calcium 8.5 (8.4-10.2) mg/dL Calcium panel 10/13/19 Range/Units 05:34 Calcium 8.5 (8.4-10.2) mg/dL Pituitary panel 10/13/19 Range/Units 05:34 Sodium 143 D (137-145) mmol/L Potassium 4.3 (3.6-5.0) mmol/L Chloride 106.1 (98-107) mmol/L Carbon Dioxide 26 (22-30) mmol/L BUN 6 L (9-20) mg/dL Creatinine 0.9 (0.8-1.5) mg/dL Glucose 99 (75-100) mg/dL Calcium 8.5 (8.4-10.2) mg/dL Adrenal panel 10/13/19 Range/Units 05:34 Sodium 143 D (137-145) mmol/L Potassium 4.3 (3.6-5.0) mmol/L Chloride 106.1 (98-107) mmol/L Carbon Dioxide 26 (22-30) mmol/L BUN 6 L (9-20) mg/dL Creatinine 0.9 (0.8-1.5) mg/dL Glucose 99 (75-100) mg/dL Calcium 8.5 (8.4-10.2) mg/dL
[2019-10-13] MEDS: POLYETHYLENE GLYCOL 3350 17 GM POWDER PO SCH (09:34)
[2019-10-13] MEDS: levoFLOXacin 500 MG TAB PO SCH (09:34)
[2019-10-13] MEDS: MAGNESIUM HYDROXIDE (MOM) ORAL LIQD UDC PO SCH (09:34)
--- NOTE | 2019-10-13 16:05 | Discharge Summary ---
Providers - Providers Date of Admission: 10/11/19 18:35 Date of discharge: 10/13/19 Attending physician: SEN UNDERWOOD 10/11/19 16:55 Consult to Physician [CONS] Stat Comment: Consulting Provider: ARTIS MENG Physician Instructions: Reason For Exam: bowel thickening, partial LBO 10/11/19 21:43 Consult to Physician [CONS] Routine Comment: Consulting Provider: VALERIA OAKLEY Physician Instructions: Reason For Exam: Possible left lower quadrant mass /fecal impaction Primary care physician: STONE DRESSER Hospitalization Condition: Fair Hospital course: Date #3--10/13/2019 Patient being discharged 24-year-old male with no significant past medical history comes in for constipation of 5 days duration. As per the ER physician sales support assistant it was mentioned last 3 days. Patient is also having left upper quadrant and left lower quadrant pain which is about 7-10 on a scale of 1-10. Colicky. Patient also says that he had 20 episodes of vomiting over the last 3 days. Patient states that he is not able to pass gas. Patient attempted and Félix accepted but with no relief. No recent travel no fever. Had abdominal surgery for undescended testicles and hernia repair approximately 15 years ago. Denies any other past medical history. No exposure to coronavirus. No recent travel. Patient had good bowel movement with MiraLAX and milk of magnesia His symptoms are relieved (1) Large bowel obstruction Current Visit: Yes Status: Acute Plan to address problem: secondary to fecal impaction Patient had good bowel movement with milk of magnesia and MiraLAX (2) Acute dehydration Current Visit: Yes Status: Acute Plan to address problem: Dehydration is improved (3) Polycythemia due to fall in plasma volume Current Visit: Yes Status: Acute Plan to address problem: Secondary to fall in plasma volume Patient has high specific gravity of the urine-1.041 Hemoconcentration has come down now hemoglobin at 14 (4) Hyponatremia Current Visit: Yes Status: Acute Plan to address problem: Resolved Patient counseled about high-fiber diet and MiraLAX. Good bowel habits are encouraged No prescriptions at discharge Disposition: DC- TO HOME OR SELFCARE - Discharge Diagnoses (1) Large bowel obstruction Status: Acute (2) Acute dehydration Status: Acute (3) Polycythemia due to fall in plasma volume Status: Acute (4) Hyponatremia Status: Acute (5) DVT prophylaxis Status: Acute Core Measure Documentation - Palliative Care Palliative Care/ Comfort Measures: Not Applicable - Core Measures Any of the following diagnoses?: none Exam - Constitutional Vitals: Temp Pulse Resp BP Pulse Ox 98.6 F 54 L 18 106/44 99 10/13/19 11:13 10/13/19 11:13 10/13/19 11:13 10/13/19 11:13 10/13/19 11:13 General appearance: Present: no acute distress, well-nourished - EENT Eyes: Present: PERRL ENT: hearing intact, clear oral mucosa - Neck Neck: Present: supple, normal ROM - Respiratory Respiratory effort: normal Respiratory: bilateral: CTA - Cardiovascular Rhythm: regular (76) Heart Sounds: Present: S1 & S2. Absent: rub, click - Extremities Extremities: pulses symmetrical, No edema Peripheral Pulses: within normal limits - Abdominal General gastrointestinal: Present: soft, non-tender, non-distended, normal bowel sounds Male genitourinary: Present: normal - Integumentary Integumentary: Present: clear, warm, dry - Musculoskeletal Musculoskeletal: gait normal, strength equal bilaterally - Psychiatric Psychiatric: appropriate mood/affect, intact judgment & insight - Neurologic Neurologic: CNII-XII intact, moves all extremities Plan Activity: no restrictions Diet: regular Follow up with: PRIMARY CAREMD [Primary Care Provider] - 3-5 Days
[2019-10-13 16:33] VITALS: BP 108/51
== END 2019-10-13 17:00 | disposition home or self-care (01) | DRG 389 ==
LOC: ED 14:02 → 3B-SURG 18:35
PROVIDERS: ADMIT Internal Medicine; ATTEND Internal Medicine
DX: K56.699 Other intestinal obstruction unspecified as to partial versus complete obstruction (principal); E87.1 Hypo-osmolality and hyponatremia; E86.0 Dehydration; D75.1 Secondary polycythemia; F17.200 Nicotine dependence, unspecified, uncomplicated
CPT/HCPCS: 36415; 74018; 74177; 80048; 80053; 81001; 83690; 85025; 85027; G0378; J1170; J1644; J1885; J2270; J2405; J7030; J7042; Q9967

== ENCOUNTER 2020-12-24 19:46 | Emergency (ER) | payer OTHER, SELFPAY ==
[2020-12-24] MEDS ORDERED: ACETAMINOPHEN 325 MG TAB PO ONE (21:52)
[2020-12-24] MEDS ORDERED: ACETAMINOPHEN 325 MG TAB ONE (21:54)
--- NOTE | 2020-12-24 22:15 | XRay Report ---
CHEST 2 VIEWS INDICATION / CLINICAL INFORMATION: cough and fever. COMPARISON: None available. FINDINGS: SUPPORT DEVICES: None. HEART / MEDIASTINUM: No significant abnormality. LUNGS / PLEURA: No significant pulmonary or pleural abnormality. No pneumothorax. ADDITIONAL FINDINGS: No significant additional findings. IMPRESSION: 1. No acute findings. Signer Name: Hunter Sharma MD Signed: 12/24/2020 10:11 PM Workstation Name: [id number]
--- NOTE | 2020-12-25 00:03 | Emergency Department Report ---
- General Chief Complaint: Fever Stated Complaint: FLU LIKE SX Source: patient Mode of arrival: Ambulatory Limitations: No Limitations - History of Present Illness Initial Comments: Patient is a 25-year-old white male with no past medical history who presents to the ED with complaint of acute onset persistent intermittent fever of up to 104 F, chills, diffuse body aches and pains, frontal headache, nasal and sinus congestion, persistent dry cough, nausea and lack of appetite for the last 20 hours. Patient states that no one else at home is at similar symptoms. Patient states that he has not been vaccinated against COVID-19 virus. Patient states that he has been taking [id number] medications with no relief. Patient denies dizziness, syncope, chest pain or shortness of breath, sore throat, abdominal pain, vomiting, diarrhea, dysuria, urinary frequency and urgency, testicular pain, change in vision or palpitations. MD Complaint: fever, cough, sore throat, rhinorrhea, nasal congestion, sinus pain -: Sudden, hour(s) (20) Severity scale (0 -10): 7 Quality: sharp, aching Consistency: constant Improves With: nothing Context: sick contacts Associated Symptoms: denies other symptoms, fever, chills, myalgias, headache, rhinorrhea, nasal congestion, sore throat, cough. denies: stiff neck, chest pain, shortness of breath, abdominal pain, nausea, vomiting, diarrhea, dysuria, rash, right sweats, weight loss, epistaxis, hoarseness, ear pain, other Treatments Prior to Arrival: none - Related Data Previous Rx's Medication Instructions Recorded Last Taken Type Acetaminophen [Tylenol] 500 mg PO Q6HR PRN #30 tablet 12/25/20 Unknown Rx Azithromycin [Zithromax Z-ROSIO] 250 mg PO DAILY #6 tablet 12/25/20 Unknown Rx Benzonatate [Tessalon Perles] 100 mg PO Q8HR #30 capsule 12/25/20 Unknown Rx Cetirizine HCl [Zyrtec 10mg tab] 10 mg PO DAILY #30 tablet 12/25/20 Unknown Rx Ondansetron [Zofran Odt] 4 mg PO Q8HR PRN #15 tab.rapdis 12/25/20 Unknown Rx Allergies Allergy/AdvReac Type Severity Reaction Status Date / Time No Known Allergies Allergy Verified 10/11/19 21:51 ED Review of Systems ROS: Stated complaint: FLU LIKE SX Other details as noted in HPI Constitutional: chills, fever, malaise Eyes: denies: eye pain, eye discharge, vision change ENT: congestion, other (Frontal sinus pressure). denies: ear pain, throat pain Respiratory: cough. denies: shortness of breath, wheezing Cardiovascular: denies: chest pain, palpitations Endocrine: no symptoms reported Gastrointestinal: nausea. denies: abdominal pain, vomiting, diarrhea Genitourinary: denies: urgency, dysuria Musculoskeletal: arthralgia, myalgia. denies: back pain, joint swelling Skin: denies: rash, lesions Neurological: headache (Frontal headache). denies: weakness, paresthesias Psychiatric: denies: anxiety, depression Hematological/Lymphatic: denies: easy bleeding, easy bruising ED Past Medical Hx - Past Medical History Previous Medical History?: No - Surgical History Past Surgical History?: Yes Additional Surgical History: Hernia repair - Social History Smoking Status: Current Every Day Smoker Substance Use Type: None - Medications Home Medications: Home Medications Medication Instructions Recorded Confirmed Last Taken Type Acetaminophen [Tylenol] 500 mg PO Q6HR PRN #30 tablet 12/25/20 Unknown Rx Azithromycin [Zithromax Z-ROSIO] 250 mg PO DAILY #6 tablet 12/25/20 Unknown Rx Benzonatate [Tessalon Perles] 100 mg PO Q8HR #30 capsule 12/25/20 Unknown Rx Cetirizine HCl [Zyrtec 10mg tab] 10 mg PO DAILY #30 tablet 12/25/20 Unknown Rx Ondansetron [Zofran Odt] 4 mg PO Q8HR PRN #15 tab.rapdis 12/25/20 Unknown Rx ED Physical Exam - General Limitations: No Limitations General appearance: alert, in no apparent distress - Head Head exam: Present: atraumatic, normocephalic, normal inspection - Eye Eye exam: Present: normal appearance, PERRL, EOMI Pupils: Present: normal accommodation - ENT ENT exam: Present: normal orophraynx, mucous membranes moist, TM's normal bilaterally, normal external ear exam, other (Grossly congested nasal passages; palpable frontal and maxillary sinus tenderness) - Neck Neck exam: Present: normal inspection, full ROM - Respiratory Respiratory exam: Present: normal lung sounds bilaterally. Absent: respiratory distress, wheezes, rales, rhonchi, chest wall tenderness, accessory muscle use, decreased breath sounds, prolonged expiratory - Cardiovascular Cardiovascular Exam: Present: normal rhythm, tachycardia, normal heart sounds. Absent: systolic murmur, diastolic murmur, rubs, gallop - GI/Abdominal GI/Abdominal exam: Present: soft, normal bowel sounds. Absent: tenderness, guarding, rebound, hyperactive bowel sounds, hypoactive bowel sounds, organomegaly - Extremities Exam Extremities exam: Present: normal inspection, full ROM, normal capillary refill - Back Exam Back exam: Present: normal inspection, full ROM. Absent: tenderness, CVA tenderness (R), CVA tenderness (L), muscle spasm, paraspinal tenderness, vertebral tenderness - Neurological Exam Neurological exam: Present: alert, oriented X3, CN II-XII intact, normal gait, reflexes normal - Psychiatric Psychiatric exam: Present: normal affect, normal mood - Skin Skin exam: Present: warm, dry, intact, normal color. Absent: rash ED Course Vital Signs 12/24/20 21:48 Temperature 101.1 F H Pulse Rate 102 H Respiratory 18 Rate Blood Pressure 116/59 O2 Sat by Pulse 99 Oximetry ED Medical Decision Making - Radiology Data Radiology results: report reviewed, image reviewed [facility] [address] [place] [address] XRay Report Signed Patient: OLLIE LEDBETTER MR#: [id number] : 1995 Acct:[id number] Age/Sex: 25 / M ADM Date: 12/24/20 Loc: ED Attending Dr: Ordering Physician: ED MD CELESTINE Date of Service: 12/24/20 Procedure(s): XR chest routine 2V Accession Number(s): [id number] cc: ED MD CELESTINE Fluoro Time In Minutes: CHEST 2 VIEWS INDICATION / CLINICAL INFORMATION: cough and fever. COMPARISON: None available. FINDINGS: SUPPORT DEVICES: None. HEART / MEDIASTINUM: No significant abnormality. LUNGS / PLEURA: No significant pulmonary or pleural abnormality. No pneumothorax. ADDITIONAL FINDINGS: No significant additional findings. IMPRESSION: 1. No acute findings. Signer Name: Hunter Sharma MD Signed: 12/24/2020 10:11 PM Workstation Name: [id number] Transcribed By: TL Dictated By: Hunter Sharma MD Electronically Authenticated By: Hunter Sharma MD Signed Date/Time: 12/24/202210 DD/ 09 TD/TT: - Medical Decision Making This is a 25-year-old white male with no past medical history who presents to the ED with complaint of acute onset persistent intermittent fever of up to 103 F, chills, diffuse body aches and pains, frontal headache, nasal and sinus congestion, persistent dry cough, nausea and lack of appetite for the last 20 hours. Patient states that no one else at home is at similar symptoms. Patient states that he has not been vaccinated against COVID-19 virus. Patient states that he has been taking [id number]-[id number] medications with no relief. In the ED, patient is alert and oriented x3 and is not in any distress. Patient is tachycardic and febrile in triage. Chest x-ray shows no acute cardiopulmonary abnormalities or pneumonitis. Patient was treated for fever in the ED and on reevaluation, patient felt better, headache resolved. Tachycardia and fever resolved with treatment. Patient was therefore discharged home on medications and advised to ensure that he gets tested for COVID-19 viral infection given the fact that he has not been fully vaccinated against the virus. Patient was advised to return to the emergency department immediately if symptoms get worse, otherwise self quarantine at home for 10 days if he tests positive for COVID-19 viral infection - Differential Diagnosis URI; sinusitis; pneumonia; strep pharyngitis; COVID-19 Critical care attestation.: If time is entered above; I have spent that time in minutes in the direct care of this critically ill patient, excluding procedure time. ED Disposition Clinical Impression: Acute upper respiratory infection, Suspected 2019 novel coronavirus infection, Fever and chills Acute frontal sinusitis, unspecified Qualifiers: Recurrence: non-recurrent Qualified Code(s): J01.10 - Acute frontal sinusitis, unspecified Acute bronchitis Qualifiers: Bronchitis organism: unspecified organism Qualified Code(s): J20.9 - Acute bronchitis, unspecified Disposition: DC-01 TO HOME OR SELFCARE Is pt being admited?: No Does the pt Need Aspirin: No Condition: Stable Instructions: Acute Bronchitis (ED), Sinusitis, Adult, [id number], Acute Bronchitis, Adult, [id number]-[id number], Fever, Adult, Uhqw-[id number], Upper Respiratory Infection, Adult, [id number] Additional Instructions: The chest x-ray showed no acute cardiopulmonary abnormalities or pneumonitis. Therefore your symptoms are likely due to acute upper respiratory infection but we cannot rule out COVID-19 viral infection because of the risk factors you have. Therefore ensure that you get tested for COVID-19 viral infection at any of the outpatient facilities. Take medications with food, drink plenty of fluids and follow-up with your primary care physician in 5 to 7 days for reevaluation. However if you test positive for COVID-19 viral infection, then you are obligated to self quarantine at home for 10 days as you take medications. Prescriptions: Acetaminophen [Tylenol] 500 mg PO Q6HR PRN #30 tablet PRN Reason: Pain , Severe (7-10) Benzonatate [Tessalon Perles] 100 mg PO Q8HR #30 capsule Azithromycin [Zithromax Z-ROSIO] 250 mg PO DAILY #6 tablet Ondansetron [Zofran Odt] 4 mg PO Q8HR PRN #15 tab.rapdis PRN Reason: Nausea Cetirizine HCl [Zyrtec 10mg tab] 10 mg PO DAILY #30 tablet Referrals: PRIMARY CARE, [Primary Care Provider] - 3-5 Days [facility] [Provider Group] - 7-10 days Forms: Work/School Release Form(ED) Time of Disposition: 00:10 Print Language: ARMENIAN
[2020-12-25 00:34] VITALS: BP 106/58
== END 2020-12-25 00:25 | disposition home or self-care (01) ==
LOC: ED 19:46
DX: J01.10 Acute frontal sinusitis, unspecified (principal); J20.9 Acute bronchitis, unspecified; Z20.822 Contact with and (suspected) exposure to COVID-19; J06.9 Acute upper respiratory infection, unspecified; F17.200 Nicotine dependence, unspecified, uncomplicated; Z98.890 Other specified postprocedural states; Z79.899 Other long term (current) drug therapy
CPT/HCPCS: 71046; 99283